=== PATIENT | female | born 1960 | race Two or more races ===

== ENCOUNTER → 2017-07-16 12:13 | Outpatient (CLI) | payer OTHER ==
[~2017-07-16 12:13] MED LIST: ENALAPRIL MALEAT5 MG PO; HYDROCHLOROTHIA25 MG PO
== END | disposition home or self-care (01) ==
LOC: LAB 12:13
DX: K62.5 Hemorrhage of anus and rectum (principal); K29.70 Gastritis, unspecified, without bleeding; R10.84 Generalized abdominal pain; K52.9 Noninfective gastroenteritis and colitis, unspecified; B82.9 Intestinal parasitism, unspecified; E03.9 Hypothyroidism, unspecified; E78.5 Hyperlipidemia, unspecified; M32.9 Systemic lupus erythematosus, unspecified

== ENCOUNTER 2017-07-21 08:34 | Outpatient (CLI) | payer OTHER | END 2017-07-21 08:59 | disposition home or self-care (01) | LOC: LAB 08:34 | DX: R10.84 Generalized abdominal pain (principal); K52.9 Noninfective gastroenteritis and colitis, unspecified; K62.5 Hemorrhage of anus and rectum; B82.9 Intestinal parasitism, unspecified; E03.9 Hypothyroidism, unspecified; E78.2 Mixed hyperlipidemia; K29.70 Gastritis, unspecified, without bleeding; M32.9 Systemic lupus erythematosus, unspecified ==

== ENCOUNTER → 2017-08-16 12:24 | Outpatient (CLI) | payer OTHER | END | disposition home or self-care (01) | LOC: LAB 12:24 | DX: D84.1 Defects in the complement system (principal); R76.8 Other specified abnormal immunological findings in serum; M25.50 Pain in unspecified joint; T78.3XXA Angioneurotic edema, initial encounter; T78.2XXA Anaphylactic shock, unspecified, initial encounter ==

== ENCOUNTER 2018-09-19 10:52 | Outpatient (CLI) | payer OTHER | END 2018-09-19 11:03 | disposition home or self-care (01) | LOC: RAD 10:52 | DX: J45.40 Moderate persistent asthma, uncomplicated (principal) ==

== ENCOUNTER 2018-09-22 11:53 | Outpatient (CLI) | payer OTHER | END 2018-09-22 12:13 | disposition home or self-care (01) | LOC: MRI 11:53 | DX: M54.40 Lumbago with sciatica, unspecified side (principal) | CPT/HCPCS: 72148 ==

== ENCOUNTER → 2018-12-19 11:54 | Outpatient (CLI) | payer OTHER | END | disposition home or self-care (01) | LOC: RAD 11:54 | DX: J45.40 Moderate persistent asthma, uncomplicated (principal); R06.02 Shortness of breath; R05 Cough; J45.998 Other asthma ==

== ENCOUNTER 2019-01-13 11:05 | Outpatient (CLI) | payer OTHER | END 2019-01-13 11:13 | disposition home or self-care (01) | LOC: MAMO-SONO 11:05 | DX: N60.11 Diffuse cystic mastopathy of right breast (principal); N60.12 Diffuse cystic mastopathy of left breast; Z12.31 Encounter for screening mammogram for malignant neoplasm of breast; Z87.898 Personal history of other specified conditions; R10.2 Pelvic and perineal pain ==

== ENCOUNTER 2019-01-13 12:23 | Outpatient (CLI) | payer OTHER | END 2019-01-13 12:34 | disposition home or self-care (01) | LOC: LAB 12:23 | DX: D64.89 Other specified anemias (principal); Z12.11 Encounter for screening for malignant neoplasm of colon; E03.8 Other specified hypothyroidism; N95.1 Menopausal and female climacteric states; I10 Essential (primary) hypertension; C51.8 Malignant neoplasm of overlapping sites of vulva; N30.00 Acute cystitis without hematuria; A64 Unspecified sexually transmitted disease; R97.8 Other abnormal tumor markers; R79.89 Other specified abnormal findings of blood chemistry; E55.9 Vitamin D deficiency, unspecified; T78.3XXA Angioneurotic edema, initial encounter ==

== ENCOUNTER → 2019-02-11 | Outpatient (CLI) | payer OTHER | END | disposition home or self-care (01) | LOC: NUCLEAR 11:00 | DX: M81.0 Age-related osteoporosis without current pathological fracture (principal) ==

== ENCOUNTER 2021-10-11 07:23 | Outpatient (CLI) | payer OTHER | END 2021-10-11 07:38 | disposition home or self-care (01) | LOC: TOM 07:23 | PROVIDERS: ATTEND Internal Medicine Gastroenterology | DX: R10.9 Unspecified abdominal pain (principal); K52.9 Noninfective gastroenteritis and colitis, unspecified ==

== ENCOUNTER 2021-10-11 09:42 | Outpatient (CLI) | payer OTHER | END 2021-10-11 10:02 | disposition home or self-care (01) | LOC: LAB 09:42 | PROVIDERS: ATTEND Internal Medicine Gastroenterology | DX: E03.9 Hypothyroidism, unspecified (principal); R10.9 Unspecified abdominal pain ==

== ENCOUNTER 2021-11-22 07:42 | Outpatient (CLI) | payer OTHER | END 2021-11-22 07:50 | disposition home or self-care (01) | LOC: MAMO-SONO 07:42 | PROVIDERS: ATTEND Obstetrics & Gynecology | DX: Z12.31 Encounter for screening mammogram for malignant neoplasm of breast (principal); N60.11 Diffuse cystic mastopathy of right breast; N60.12 Diffuse cystic mastopathy of left breast ==

== ENCOUNTER 2021-11-22 08:36 | Outpatient (CLI) | payer OTHER | END 2021-11-22 08:40 | disposition home or self-care (01) | LOC: NUCLEAR 08:36 | PROVIDERS: ATTEND Obstetrics & Gynecology | DX: M81.0 Age-related osteoporosis without current pathological fracture (principal); Z88.0 Allergy status to penicillin; Z88.8 Allergy status to other drugs, medicaments and biological substances; Z91.018 Allergy to other foods ==

== ENCOUNTER → 2022-06-05 | Outpatient (CLI) | payer OTHER | END | disposition home or self-care (01) | LOC: RAD 14:15 | PROVIDERS: ATTEND Orthopaedic Surgery Sports Medicine | DX: M22.41 Chondromalacia patellae, right knee (principal); M17.0 Bilateral primary osteoarthritis of knee | CPT/HCPCS: 73721 ==

== ENCOUNTER 2023-02-06 10:11 | Outpatient (CLI) | payer OTHER | END 2023-02-06 10:27 | disposition home or self-care (01) | LOC: MRI 10:11 | DX: M25.561 Pain in right knee (principal); M47.817 Spondylosis without myelopathy or radiculopathy, lumbosacral region; M46.1 Sacroiliitis, not elsewhere classified; M47.812 Spondylosis without myelopathy or radiculopathy, cervical region; M25.562 Pain in left knee; M54.17 Radiculopathy, lumbosacral region | CPT/HCPCS: 72148 ==

== ENCOUNTER 2023-11-24 12:56 | Outpatient (CLI) | payer OTHER | END 2023-11-24 12:57 | disposition home or self-care (01) | LOC: NUCLEAR 12:56 | PROVIDERS: ATTEND Internal Medicine Nephrology | DX: I12.9 Hypertensive chronic kidney disease with stage 1 through stage 4 chronic kidney disease, or unspecified chronic kidney disease (principal); G47.30 Sleep apnea, unspecified; M81.0 Age-related osteoporosis without current pathological fracture ==